=== PATIENT | female | born 1950 ===

== ENCOUNTER 2022-05-24 09:03 | Outpatient (CLI) | payer MEDICARE, BC, SELFPAY ==
[2022-05-24 10:39] LABS: Cholesterol* 197 mg/dL (90-199); HDL Cholesterol* 73 mg/dL (>=50); LDL Cholesterol Calculated 103 mg/dL (<100); Triglycerides* 105 mg/dL (40-149)
[2022-05-24 10:56] LABS: Vitamin D 25 Hydroxy* 33 ng/mL (30-80)
== END 2022-05-24 09:04 | disposition home or self-care (01) ==
PROVIDERS: PCP Internal Medicine; Visit Provider Internal Medicine
DX: E78.5 Hyperlipidemia, unspecified (principal); E03.9 Hypothyroidism, unspecified; M85.80 Other specified disorders of bone density and structure, unspecified site
CPT/HCPCS: 80061; 82306; 84443

== ENCOUNTER 2023-05-27 10:25 | Outpatient (CLI) | payer MEDICARE, BC, SELFPAY | END 2023-05-27 10:26 | disposition home or self-care (01) | LOC: NFLDREF 05-30 11:32 | PROVIDERS: PCP Internal Medicine; Referring Provider Internal Medicine; Visit Provider Internal Medicine | DX: E78.5 Hyperlipidemia, unspecified (principal); M85.80 Other specified disorders of bone density and structure, unspecified site; E03.9 Hypothyroidism, unspecified | CPT/HCPCS: 80061; 82306; 84443 ==

== ENCOUNTER 2023-09-16 08:22 | Outpatient (CLI) | payer MEDICARE, BC, SELFPAY | END 2023-09-16 08:23 | disposition home or self-care (01) | LOC: NFLDREF 09-26 09:48 | PROVIDERS: PCP Internal Medicine; Referring Provider Internal Medicine; Visit Provider Internal Medicine | DX: E78.5 Hyperlipidemia, unspecified (principal) | CPT/HCPCS: 80061 ==

== ENCOUNTER 2024-06-01 10:06 | Outpatient (CLI) | payer MEDICARE, BC, SELFPAY ==
--- OUTSIDE RECORDS SUMMARY | 2024-06-04 06:54 | XMS_ITS | Clinical Summary ---
Author Organization [employer] [facility] Address [place], [place] [address] Care Team Providers Care Photolithographer Name Role Phone Alicia Sloan MD Primary Care Provider Allergies No known active allergies Medications Medication Sig Dispensed Refills Start Date End Date Status simvastatin (ZOCOR) 20 mg tabletIndications: Hyperlipidemia TAKE 1 TABLET AT BEDTIME 90 tablet 0 07/16/2015 Active LORazepam (ATIVAN) 1 mg tabletIndications: Anxiety Take 1 tablet by mouth every 6 hours if needed for Anxiety. 15 tablet 04/09/2016 Active acetaminophen (TYLENOL EXTRA STRGTH) 500 mg tabletIndications: Epiglottitis Take 2 tablets by mouth every 6 hours if needed (for pain.). Max acetaminophen dose: 4000mg in 24 hrs. 0 04/09/2016 Active omeprazole (PRILOSEC) 20 mg Delayed-Release capsuleIndications :Gastroesophageal reflux disease without esophagitis TAKE 1 CAPSULE ONE TIME DAILY BEFORE A MEAL 90 capsule 01/25/2017 Active Active Problems Problem Noted Date Diagnosed Date Thyroid mass 04/09/2016 GERD (gastroesophageal reflux disease) 6 Epiglottitis 04/04/2016 Acute airway obstruction 04/04/2016 Screen for colon cancer 05/22/2012 Overview (05/22/2012): Colonoscopy 05/2012 normal repeat in 10 years ACP (advance care planning) 03/04/2012 Overview (03/04/2012): Patient has identified Health Care Agent(s): Yes Add Health Care Agents: Yes Health Care Agent(s): Primary Health Care Agent: Betito Nowak Relationship: son cell Secondary Health Care Agent: Suzy De Relationship: daughter [phone] cell Per health care directive, Edwardo Nowak is to have no role in decision making. Patient has Advance Care Plan Documents (Health Care Directive, POLST): Yes Advance Care Plan Documents: Health Care Directive Patient has identified Specific Treatment Preferences: Yes Specific Treatment Preferences: a.) Code Status: CPR/Attempt Resuscitation b.) Goals of Treatment: Comfort Care. If I reach a point where I am no longer able to make decisions for myself and it is reasonably certain I will not recover my ability to know who I am, than I want comfort care only. Do not intubate but use medication, oxygen, oral suction, and manual clearing of airways, etc. as needed for immediate comfort. Hyperlipidemia 07/05/2009 Subclinical hypothyroidism 07/05/2009 Encounters Date Type Department Care Team Description 03/04/2024 2:40 PM CDT Ancillary Procedure [facility] [address] [place] [address] 03/04/2024 Travel from Last 3 Months Immunizations Name Administration Dates Next Due AMB Influenza, IIV3 (Age >=3 years)(Flu Clinic O nly) 05/31/2010 Amb Influenza, Inact (High-dose) (Flu Clinic Onl y) 04/27/2014 Influenza A (H1N1), Inactivated (Age >=3 Years) 06/09/2009 Influenza, IIV3 (Age >=3 years) 04/16/2012 Pneumococcal conj 13-Valent (Prevnar 13) 015 Zoster (Zostavax-ZVL, live) 06/09/2009 Family History Medical History Relation Name Comments Heart Disease Father [facility] age 42 Cancer Mother lung Cancer-breast Mother Lung cancer me tastisized to breasts Cancer-ovarian No Family History Relation Name Status Comments Father Mother Social History Tobacco Use Types Packs/Day Years Used Date Smoking Tobacco: Former Tobacco Cessation:Counseling Given: Yes Alcohol Use Standard Drinks/Week Comments Yes 7 (1 standard drink = 0.6 oz pur e alcohol) Sex and Gender Information Value Date Recorded Sex Assigned at Not on file Gender Identity Not on file Sexual Orientation Not on file Obstetrics History Last Filed Vital Signs Vital Sign Reading Time Taken Comments Blood Pressure 121/81 04/09/2016 8:53 AM CDT Pulse 81 04/09/2016 8:53 AM CDT Temperature 36.9 ??C (98.4 ??F) 04/09/2016 8:53 AM CD T Respiratory Rate 18 04/09/2016 8:53 AM CDT Oxygen Saturation 93% 04/09/2016 8:53 AM CDT Inhaled Oxygen Concentration - - Weight 77.6 kg (171 lb 1.2 oz) 04/06/2016 5:00 A M CDT Height 167.6 cm (5' 6) 04/04/2016 1:14 AM CDT Body Mass Index 27.61 04/04/2016 1:14 AM CDT Plan of Treatment Health Maintenance Due Date Last Done Comments Tdap 1961 Hepatitis C screening for ag e 18-79 1967 Zoster (shingles) series for age 50+ (2 of 3) 08/04/2009 06/09/2009 Tetanus booster 03/25/2015 03/25/2005 (Comp leted outside of [facility]) Pneumococcal series for age 65+ (2 of 2 - PPSV23 or PCV20) 11/09/2015 11/08/2014 BMI (ht and wt on same day) for age 18+ 04/03/2017 04/03/2016 Depression screening for age 12+ 04/03/2017 04/03/2016, 04/03/2016, 04/03/2016 Lipids for age 45-75 11/09/2019 11/08/2014, 05/11/2013, 03/25/2012, Additional history exists Colonoscopy through age 75 05/22/2022 05/22/2012, COVID-19 vaccine series ( season) 2024 04/23/2022, 11/07/2021, 05/25/2021, Additional history exists Influenza for age 65+ 03/22/2024 04/27/2014 , 04/16/2012, 05/31/2010, Additional history exists RSV vaccine for adults or (1 - 1-dose 75+ series) 2024 DEXA/DXA scan for age 65+ Completed 11/12/2014 Procedures Procedure Name Priority Date/Time Associated Diagnosis Comments XR MAMMO LARISA BILAT SCREEN Routine 03/04/2024 2:52 PM CDT Encounter for screening mammogram for malignant neoplasm of breast XR DXA BONE DENSITY 2 SITES AXIAL Routine 11/12/2014 1:28 PM CDT Asymptomatic menopausal state LIPID PANEL W REFLEX MEASURED LDL Routine 11/08/2014 9:33 AM CDT Hyperlipidemia from Last 3 Months or Most Recently Relevant to Health Maintenance Results * XR MAMMO LARISA BILAT SCREEN (03/04/2024 2:52 PM CDT) Anatomical Region Laterality Modality BREASTS, Breast Left, Breast Right Bilateral Mammography Impressions 03/05/2024 2:55 PM CDT ??There is no radiographic evidence for malignancy. ??Recommend annual mammograms. MAMMOGRAM ASSESSMENT: ??ACR 1 Negative PATIENTS: You will also receive a letter with your examination results in an easy to read format. ??If you have questions about your results, please contact your referring provider. Narrative 03/05/2024 2:55 PM CDT For Patients: As a result of the Century Cures Act, medical imaging exams and procedure reports are released immediately into your electronic medical record. You may view this report before your referring provider. If you have questions, please contact your health care provider. XR MAMMO LARISA BILAT SCREEN [[id number]] CLINICAL HISTORY: ??This is an asymptomatic 73 y.o. patient. INDICATION FOR EXAM: Mammogram Screening. TECHNIQUE: CC & MLO views were obtained. ??This study was evaluated with the assistance of Computer-Aided Detection. Breast Tomosynthesis was used in interpretation. COMPARISON FILM: Yes 02/13/23 [facility] 11/08/14 [facility] FINDINGS: ??The breasts are heterogeneously dense, which may obscure small masses. There are no dominant masses, suspicious micro calcifications or areas of architectural distortion. Agustina Dudley MD MAMMO * (ABNORMAL) XR DEXA BONE DENSITY 2 SITES [[id number]] (11/12/2014 1:28 PM CDT) Anatomical Region Laterality Modality Spine, HIPS, HIPL, HIPR Other Narrative 11/24/2014 2:39 PM CDT Please see scanned document for results of this study. Procedure Note Ly Arias PA - 11/24/2014 Please see scanned document for results of this study. Alicia Sloan MD DEXA * (ABNORMAL) LIPID PANEL W REFLEX MEASURED LDL (11/08/2014 9:33 AM CDT) CHOLESTEROL,TOTAL 192 100 - 199 mg/dL 11/08/2014 10:05 AM CDT [facility] TRIGLYCERIDES 170(H) <150 mg/dL 11/08/2014 10:05 AM CDT [facility] HDL CHOLESTEROL 53 >40 mg/dL 5 10:05 AM CDT [facility] NON-HDL CHOLESTEROL 139 <145 mg/dl 11/08/2014 10:05 AM CDT [facility] CHOL/HDL RATIO 3.62 <4.50 11/08/2014 10:05 AM CDT [facility] LDL CHOLESTEROL 105 <=130 mg/dL 11/08/2014 10:05 AM CDT [facility] PATIENT STATUS FASTING 11/08/2014 10:05 AM CDT [facility] Blood specimen (specimen) BLOOD SPECIMEN / Unknown Venipuncture / Unknown 11/08/2014 9:33 AM CDT 11/08/2014 9:33 AM CDT Alicia Sloan MD CHEMISTRY [facility] [address] [place] [address], from Last 3 Months or Most Recently Relevant to Health Maintenance Advance Directives Documents on File Type Date Recorded Patient Healthcare Receptionist Expl anation Healthcare Directive 03/17/2012 12:11 PM H CD * Full Code (Latest Code Status on File) Date Activated Date Inactivated Comments 04/04/2016 2:00 AM 04/09/2016 3:36 PM Care Teams Photolithographer Relationship Specialty Start Date End Date Alicia Sloan MD [address] [place] [address] PCP - General Family Practice 03/07/12
== END 2024-06-01 10:07 | disposition home or self-care (01) ==
LOC: NFLDREF 06-04 06:53
PROVIDERS: PCP Internal Medicine; Referring Provider Internal Medicine; Visit Provider Internal Medicine
DX: E78.5 Hyperlipidemia, unspecified (principal); E03.9 Hypothyroidism, unspecified; M85.80 Other specified disorders of bone density and structure, unspecified site; M81.0 Age-related osteoporosis without current pathological fracture
CPT/HCPCS: 80061; 82306; 84443

== ENCOUNTER 2024-09-21 13:17 | Outpatient (RCR) | payer MEDICARE, BC, SELFPAY ==
--- NOTE | 2024-09-21 14:29 | PT.OPEX ---
PT [place] Outpatient Eval PT [facility] Outpatient Eval Start: 09/07/24 14:51 Freq: Status: Active Protocol: Document 09/21/24 07:22 MLS (Rec: 09/21/24 14:24 MLS [id number]) E-signed By Carey Dillon DPT Physical Therapy Outpatient Evaluation Insurance Information Recert Due Date 12/19/24 Insurance Name Medicare B,Blue Cross/Blue Shield Medical Diagnosis N39.46 Mixed incontinence Treating Diagnosis Bladder training Pelvic floor strengthening Core program Referring MD Dr. Dudley Subjective Preferred Name Subjective Patient is a 74 year old female who presents to physical therapy with signs and symptoms consistent with mixed incontinence. She states that it started a couple years ago. She states that she thinks it has gotten worse. Urinary- Leakage (day/night): daily, possibly every night Protection worn: pad 11/02 Severity of leakage (amount): sure Activity that causes leakage ( laughing, coughing, sneezing, franco in door, running water etc): evening, diet spicy, artificial sweeteners, creamer , sneezing occasioning, franco in door at home Delay of urination: dependent on urge Urinary urgency (any incontinence): yes Strain to start/stop urine stream: would not be able to stop stream once start Hydration/fluid intake: mod water, 1 - 2 glasses a wine a night, no caffeine, rarely drinks sparkling water Daytime urination (how often): 6 Nocturia: 1 Dysuria (pain w urination): no Post-void dribble: no Pressure/heaviness: no Triggers: creamer in jennifer latte, spicy food Observation (color, odor, burning, blood, weak stream): no Bowel- Frequency: once per day [place] chart: 4 Constipation/Diarrhea: no Observation (mucus. blood): no Do you feel bowels fully evacuate with BM: no Fecal leakage: no Fecal urgency: no Protection used: no Straining with BM: no Pain with BM: no Do you use pressure with hands to assist with BM: no Flatus incontinence: no Abdominal/rectal pain or symptoms: no Do foods increase or decrease symptoms: spicy, creamer with jennifer latte Do you take bowel supplements/ laxatives: no Fiber intake: min Diet/food intolerances: not willing to change lifestyle Sexual- Are you sexually active: no Menstrual History- Date of last period: unsure Painful periods (clotting): yes, occasionally Regular cycles (how long): ave - Number of pregnancies:2 Number of deliveries:2 Vaginal or : vaginal Length of labor/pushin hours Forceps or Vacuum: no Other- Any chronic yeast infections: no Chronic UTIs: no STIs: no PMHx- nothing significant Current exercise- yoga, walking Orthopedic issues- nothing significant Pain Comments Today: 0/10 on a 0-10 pain scale with 10 = extreme pain Current Work Status Retired Precautions Weight Bearing Status Full Weight Bearing Therapy Limitations/Systems Review Not Limited Objective Other/Pertinent Objective Movement screen- SLS: no pain Lumbar Posture: decreased lordosis Pelvic Posture (ASIS/PSIS sup/ inf, rotation Ant/Pst): WNL Sacral Posture (forward/ backward torsion): WNL Hip PROM: WNL LUMBAR ROM: Flexion: WNL Extension: min dec Right Sidebend: WNL Left Sidebend: WNL Right Rotation: WNL Left Rotation: WNL All other tests deferred secondary to patient wanting exercises only at this time: Access Code: [email or web address] URL: [email or web address] Date: 09/21/2024 Prepared by: Carey Dillon Exercises - Supine Lower Trunk Rotation - 1 x daily - 7 x weekly - 3 sets - 10 reps - Sidelying 360 Breathing - 1 x daily - 7 x weekly - 3 sets - 10 reps - Supine Posterior Pelvic Tilt - 1 x daily - 7 x weekly - 3 sets - 10 reps - Supine Pelvic Floor Contraction - 1 x daily - 7 x weekly - 3 sets - 10 reps - Seated Pelvic Floor Contraction with Isometric Hip Adduction - 1 x daily - 7 x weekly - 3 sets - 10 reps - Sit to Stand with Pelvic Floor Contraction - 1 x daily - 7 x weekly - 3 sets - 10 reps Functional Test Performed & Score Pelvic Floor Questionnaire 15/45 Bladder 3/34 Bowel 0/15 Prolapse 0/40 Sexual function Assessment Assessment/Impression Pt is a 74 year old female who presents with concerns of mixed incontinence. Patient also has notable objective findings including limited ROM , tenderness to palpation, and decreased strength which are also likely contributing to the problem. Patient is a good candidate for skilled therapy to target deficits described above. Skilled PT intervention is necessary for use of therapeutic exercise manual therapy, neuromuscular re- education, gait training, and therapeutic activity. Functional impairments include difficulty with: leakage with activity, leakage with cough/ sneeze, standing, walking, exercising and ADLS. See appropriate sections of PT eval for complete list of goals and POC. D/C plan and criteria is for pt to achieve the goals as listed below or until max rehab potential is met. Pt was agreeable with plan of care and goals established. At this point patient would like to just get exercises to work on her own and come back in two weeks. Patient would like to defer internal exam as of now. Primary Functional Limitations leakage with activity exercising ADLS Plan of Care Rehabilitation Potential Good Physical Therapy Goals URINE INCONTINENCE / WEAKNESS GOALS STG (within 4-6 weeks) 1) Pt will demonstrate proper coordination of motor recruitment patterns for PF then TA activation during isometric activation while maintaining diaphragmatic breathing pattern 2)Pt will recall at least 4 strategies to improve pressure management in order to reduce instances of incontinence outside PT sessions 3) Pt will report reduced urinary leakage episodes no more than once per day for improved health of vaginal tissues LTG (within 10-12 weeks) 1) Pt will demonstrate proper coordination of motor recruitment patterns for PF then TA activation during dynamic UE/LE movements in all postures while maintaining diaphragmatic breathing pattern 2)Pt will demonstrate ability to complete at least 10 quick contractions of PFM with full relaxation between reps in order to reduce incontinence with increases in IAP 3) Pt will demonstrate improved PFM contraction of at least 4/5 on Laycock scale 4) Pt will report reduced urinary leakage episodes no more than two per week for improved health of vaginal tissues 5)Pt will report absent urinary leakage with cough, sneeze, jump. 6) Pt will demonstrate PFQ subscale score 50> for improved quality of life. Coordination/Communication With Referral Source Treatment Plan/Direct Interventions Manual Therapy,Neuromuscular Re-ed,Therapeutic Activities, Therapeutic Exercises Patient Will Be Discharged From Therapy Independently Progressing Evaluation Billing Untimed Code Treatment Minutes 30 Complexity Low Certification Information Provider Signature Required Yes Provider Signature Shows Agreement With POC & Medical Necessity Physician NPI Number Write NPI# Here Physician Comment/Change : Physician Signature & Date Requested Please Sign/Date Here
== END 2024-11-16 09:44 | disposition home or self-care (01) ==
PROVIDERS: PCP Internal Medicine; Visit Provider Internal Medicine
DX: N39.46 Mixed incontinence (principal); Z51.89 Encounter for other specified aftercare
CPT/HCPCS: 97161

== ENCOUNTER 2024-10-07 13:21 | Outpatient (CLI) | payer MEDICARE, BC, SELFPAY ==
--- NOTE | 2024-10-07 13:30 | CRLHL7_ITS ---
For Patients: As a result of the Century Cures Act, medical imaging exams and procedure reports are released immediately into your electronic medical record. You may view this report before your referring provider. If you have questions, please contact your health care provider. XR DXA BONE MINERAL DENSITY (BMD) Current height (in): 65.0. Weight (lb): 156.0. Menopause age: 52. Ethnicity: White. Reason for exam: Osteopenia. 1. Have you had a previous hip or vertebral fracture? No. 2. Have you had any fractures during your adult life which did not result from significant trauma (e.g., auto accident)? No. 3. Did either of your parents have a hip fracture? No. 4. Do you smoke? No. 5. Have you ever taken Glucocorticoids? No. 6. Do you have rheumatoid arthritis? No. 7. Do you have secondary osteoporosis? No. 8. Do you drink 3 or more alcoholic drinks per day? No. 9. Are you being treated for osteoporosis? No. 10. Have you ever taken any of the following medications: Actonel, Evista, Fosamax, Miacalcin, Reclast, Boniva, Forteo, HRT (i.e. estrogen/hormone therapy), Protelos, Prolia, Vitamin D, Calcium, other ??? please specify. ANSWER: Yes, vitamin D, calcium. 11. Do you have any of the following medical conditions: Anorexia or bulimia, asthma or emphysema, end stage renal disease, hyperparathyroidism, any seizure disorders, cancer, inflammatory bowel diseases, hysterectomy, other ??? please specify. ANSWER: Yes, hysterectomy. 12. What was your maximum height (inches)? 67. 13. Do you perform weight bearing exercise regularly? Yes. 14. Do you regularly consume dairy products? Yes. 15. Do you drink caffeinated beverages? No. 16. At what age did your period start? 12. 17. Are you premenopausal? No. 18. How many full-term pregnancies have you had? 2. 19. Have you ever missed your period for more than 6 months in a row (not including or menopause)? No. TECHNIQUE: Bone mineral density study was performed using the [email or web address]. FINDINGS: The results of the study expressed as bone mineral density (BMD) are as follows: Lumbar spine L1 to L4: BMD: 0.902 g/cm2. T-score: -1.3. Z-score: 1.1. Neck Left: BMD: 0.681 g/cm2. T-score: -1.5. Z-score: 0.6 Right: BMD: 0.688 g/cm2. T-score: -1.4. Z-score: 0.7 Total Left: BMD: 0.795 g/cm2. T-score: -1.2. Z-score: 0.6 Right: BMD: 0.821 g/cm2. T-score: -1.0. Z-score: 0.8 IMPRESSION: Osteopenia. *Comparison exams done prior to 12/2019 were performed on different unit, [employer]. COMPARISON: Compared with scan of 12/11/2018, the bone mineral density has decreased by 3.5 percent at the spine and decreased by 0.2 percent at the hip. FRAX 10-year Fracture Risk Major Osteoporotic Fracture: 12 percent Hip Fracture: 2.4 percent Reported Risk Factors: [place] () Neck BMD = 0.681, BMI = 26.0 Shashi Hoyt M.D. Diagnostic Radiologist [email or web address] Transcribed: 2:40 pm DW/Dictated by: Shashi Hoyt MD @ 10/07/2024 2:25:00 PM (Electronically Signed)
== END 2024-10-07 13:22 | disposition home or self-care (01) ==
PROVIDERS: PCP Internal Medicine; Visit Provider Internal Medicine
DX: M85.88 Other specified disorders of bone density and structure, other site (principal)
CPT/HCPCS: 77080

== ENCOUNTER 2025-04-02 08:37 | Outpatient (CLI) | payer MEDICARE, BC, SELFPAY ==
--- NOTE | 2025-04-02 08:45 | CRLHL7_ITS ---
For Patients: As a result of the Century Cures Act, medical imaging exams and procedure reports are released immediately into your electronic medical record. You may view this report before your referring provider. If you have questions, please contact your health care provider. BILATERAL DIGITAL SCREENING MAMMOGRAM WITH COMPUTER-AIDED DETECTION AND TOMOSYNTHESIS CLINICAL HISTORY: Routine screening exam. COMPARISON: 03/04/2024, 02/13/2023, 04/27/2021 TECHNIQUE: Digital mammogram in CC and MLO projections including computer-aided detection (CAD). Tomosynthesis was used in this interpretation. BREAST COMPOSITION: The breasts are heterogeneously dense, which may obscure small masses. FINDINGS: RIGHT Breast: Clustered microcalcifications within the upper inner quadrant 4 cm from the nipple. LEFT Breast: No suspicious findings. IMPRESSION: RIGHT breast calcifications. RECOMMENDATIONS: Spot compression magnification views of the calcifications in the RIGHT breast in CC and ML projections. The [facility] will contact the patient. A lay language report of this examination will be provided to the patient. BI-RADS Category 0: Incomplete: Need Additional Imaging Evaluation Dictated by Shashi Hoyt MD @ 04/05/2025 11:14:54 AM (Electronically Signed)
== END 2025-04-02 08:38 | disposition home or self-care (01) ==
LOC: MAMMO 08:38
PROVIDERS: PCP Internal Medicine; Visit Provider Internal Medicine
DX: Z12.31 Encounter for screening mammogram for malignant neoplasm of breast (principal); R92.1 Mammographic calcification found on diagnostic imaging of breast; R92.333 Mammographic heterogeneous density, bilateral breasts
CPT/HCPCS: 77063; 77067

== ENCOUNTER 2025-04-08 09:39 | Outpatient (CLI) | payer MEDICARE, BC, SELFPAY ==
--- NOTE | 2025-04-08 09:45 | CRLHL7_ITS ---
For Patients: As a result of the Cures Act, medical imaging exams and procedure reports are released immediately into your electronic medical record. You may view this report before your referring provider. If you have questions, please contact your health care provider. RIGHT DIAGNOSTIC MAMMOGRAM WITH COMPUTER-AIDED DETECTION CLINICAL HISTORY: RIGHT breast microcalcifications. COMPARISON: 04/02/2025, 03/04/2024, 02/13/2023. TECHNIQUE: Digital RIGHT mammogram in three projections. BREAST COMPOSITION: The breasts are heterogeneously dense, which may obscure small masses. FINDINGS: Additional mammogram images of the RIGHT breast submitted. Clustered pleomorphic microcalcifications are present at 12 o`clock 3 cm from the nipple. IMPRESSION: Indeterminate calcifications RIGHT breast 12 o`clock, 3 cm from the nipple. RECOMMENDATIONS: Stereotactic biopsy. A lay language report of this examination will be provided to the patient. BI-RADS Category 4: Suspicious Dictated by Shashi Hoyt MD @ 04/08/2025 12:41:38 PM /sp SP/Dictated by: Shashi Hoyt MD @ 04/08/2025 12:41:00 PM (Electronically Signed)
== END 2025-04-08 09:40 | disposition home or self-care (01) ==
LOC: MAMMO 09:39
PROVIDERS: PCP Internal Medicine; Visit Provider Internal Medicine
DX: R92.0 Mammographic microcalcification found on diagnostic imaging of breast (principal); R92.333 Mammographic heterogeneous density, bilateral breasts; R92.8 Other abnormal and inconclusive findings on diagnostic imaging of breast
CPT/HCPCS: 77065; G0279

== ENCOUNTER 2025-04-26 14:18 | Outpatient (CLI) | payer MEDICARE, BC, SELFPAY ==
--- NOTE | 2025-04-26 14:30 | CRLHL7_ITS ---
For Patients: As a result of the 21st Century Cures Act, medical imaging exams and procedure reports are released immediately into your electronic medical record. You may view this report before your referring provider. If you have questions, please contact your health care provider. BILATERAL BREAST MRI WITHOUT AND WITH GADOLINIUM CLINICAL HISTORY: Recently diagnosed breast cancer after stereotactic-guided biopsy of RIGHT breast calcifications. INDICATION FOR BREAST MRI: Staging of newly diagnosed breast cancer and screening of contralateral breast. Regional lymph nodes will also be assessed. COMPARISON STUDIES: Diagnostic RIGHT mammogram 04/08/2025. Screening mammograms 04/02/2025 and 03/04/2024. Images from stereotactic-guided biopsy and post biopsy mammogram 04/13/2025. CONTRAST: 15 mL IV Dotarem. TECHNIQUE: The patient was positioned prone using a breast coil. Multiple imaging sequences were obtained using 1-1.5 mm thick slices with no gap. The image sequences include T2-weighted STIR in the axial plane, T1-weighted nonfat-saturated gradient echo in the axial plane, pre- and post-contrast T1-weighted FLASH 3D with fat suppression in the axial plane, and T1-weighted FLASH high resolution 3D with fat suppression in the sagittal plane. Image post-processing was performed on a [employer] workstation. Complex 3D rendering including maximum intensity projections (MIPS) and volumetric renderings were obtained to optimize visualization of the extent of pathology and relationship to the nipple, skin, and chest wall. This aids in determining feasibility of breast conservation surgery. Subtraction, multiplanar reconstruction, mean curve determination, and angiogenesis mapping were also performed. The study was technically adequate. FINDINGS: Amount of Fibroglandular Tissue: Heterogeneous fibroglandular tissue. Breast Background Enhancement: Minimal. RIGHT Breast: There is heterogeneous clumped non-mass enhancement in the upper central breast at 12 o`clock 4 cm from the nipple measuring 1.1 x 1.8 x 0.8 cm. This corresponds to the calcifications seen mammographically. There is artifact from the biopsy marker along the inferior aspect of the enhancement marking the site of biopsy-proven malignancy. LEFT Breast: There is no suspicious mass or non-mass enhancement. Lymph Nodes: No abnormal morphology lymph nodes. IMPRESSIONS AND RECOMMENDATIONS: 1. Heterogeneous clumped non-mass enhancement measuring 1.8 cm at 12 o`clock middle depth in the RIGHT breast corresponds to the biopsied malignant calcifications. Continued surgical/oncologic management is recommended. 2. No MRI evidence of malignancy in the LEFT breast. 3. No abnormal morphology lymph nodes. BI-RADS Category 6: Known biopsy-proven malignancy Dictated by Crystal Medellin MD @ 04/27/2025 9:10:42 AM j/Dictated by: Crystal Medellin MD @ 04/27/2025 9:13:00 AM (Electronically Signed)
== END 2025-04-26 14:19 | disposition home or self-care (01) ==
LOC: MRI 14:19
PROVIDERS: PCP Internal Medicine; Visit Provider Surgery
DX: C50.911 Malignant neoplasm of unspecified site of right female breast (principal); R92.8 Other abnormal and inconclusive findings on diagnostic imaging of breast
CPT/HCPCS: 77049; C8908; C8937; A9575